=== PATIENT | male | born 1950 | race Caucasian/White ===

== ENCOUNTER 2022-03-04 17:48 | Inpatient (IN) | payer MEDICARE, OTHER ==
[~2022-03-04] VITALS: Ht 175.3 cm; Wt 83.9 kg
[~2022-03-04 17:48] MED LIST: ACET-868 PO; ATEN50TA PO; BENZ0.5T43 PO; BETH25TA PO; HYDR-4384 PO; LACO50TA2 PO; LEVE250T2 PO; PANT40TA2 PO; RISP1TAB97 PO; TAMS0.4C34 PO
[2022-03-04] MEDS ORDERED: MAGN400O6 PO (19:02)
[2022-03-04] MEDS ORDERED: IBUP-1953 PO (19:02)
[2022-03-04] MEDS ORDERED: PSEU30TA34 PO (19:02)
[2022-03-04] MEDS ORDERED: OMEP20CA15 PO (19:02)
[2022-03-04] MEDS ORDERED: LORA-259 PO (19:02)
[2022-03-04] MEDS ORDERED: FLUT16SP (19:02)
[2022-03-04] MEDS ORDERED: ACET-2605 PO (19:02)
[2022-03-04] MEDS ORDERED: GABA-532 PO (19:02)
[2022-03-04] MEDS ORDERED: DICY10CA13 PO (19:02)
[2022-03-04] MEDS ORDERED: SODI1TAB66 PO (19:02)
[2022-03-04] MEDS ORDERED: ATOR10TA PO (19:02)
[2022-03-04] MEDS ORDERED: RISP0.2515 PO (19:02)
[2022-03-04 19:12] LABS: CALCIUM, SERUM 9.3 mg/dL (8.5-10.1); CARBON DIOXIDE 21 mmol/L (21-32); CHLORIDE 95 mmol/L (98-107); CREATININE 0.7 mg/dL (0.6-1.3); GLUCOSE 132 mg/dL (74-106); POTASSIUM 3.9 mmol/L (3.5-5.1); SODIUM SERUM 128 mmol/L (136-145); UREA NITROGEN, BLOOD 14 mg/dL (7-18)
[2022-03-04 19:17] LABS: ALANINE AMINOTRANSFERASE 31 U/L (12-78); ALBUMIN 3.9 g/dL (3.4-5.0); ALKALINE PHOSPHATASE 89 U/L (46-116); ASPARTATE AMINOTRANSFERASE 19 U/L (15-37); BILIRUBIN,DIRECT 0.3 mg/dL (0.0-0.2); BILIRUBIN,TOTAL 1.1 mg/dL (0.2-1.0); TOTAL PROTEIN, SERUM 7.7 g/dL (6.4-8.2)
[2022-03-04 19:55] LABS: BASOPHILS % (AUTO) 0.1 % (0.0-2.0); EOSINOPHILS % (AUTO) 0.1 % (0.0-6.0); HEMATOCRIT 46 % (39-51); HEMOGLOBIN 15.5 g/dL (13.5-17.5); LYMPHOCYTES # (AUTO) 0.8 K/uL (0.8-4.8); LYMPHOCYTES % (AUTO) 8.2 % (20.0-44.0); MEAN CORPUSCULAR HGB CONC 34 g/dl (31.0-36.0); MEAN CORPUSCULAR VOLUME 94 fL (80-96); MONOCYTES # (AUTO) 1.6 K/uL (0.1-1.30); MONOCYTES % (AUTO) 15.4 % (2.0-12.0); NEUTROPHILS # (AUTO) 7.9 K/uL (1.8-8.9); NEUTROPHILS % (AUTO) 76.2 % (43.0-81.0); PLATELET COUNT (AUTO) 221 K/uL (150-450); RED BLOOD CELL COUNT(AUTO) 4.84 MIL/uL (4.5-6.0); WHITE BLOOD COUNT (AUTO) 10.3 K/uL (4.3-11.0)
[2022-03-04] MEDS ORDERED: IV NS 0.9% 1,000 ML BAG IV ONE (22:30)
[2022-03-04] MEDS ORDERED: LEVETIRACETAM (500MG) 500 MG in IV NS 0.9% 100 ML IV SCH (22:30)
[2022-03-04] MEDS ORDERED: LEVETIRACETAM (500MG) 500 MG/5 ML VIAL IV ONE (22:36)
[2022-03-04] MEDS ORDERED: MAG HYDROX/AL HYDROX/SIMETH 30 ML UDC PO PRN (23:30)
[2022-03-04] MEDS ORDERED: Z GUARD REMEDY 4 OZ OINT TP PRN (23:30)
[2022-03-04] MEDS ORDERED: ONDANSETRON HCL/PF 4 MG/2 ML VIAL IVP PRN (23:30)
[2022-03-04] MEDS ORDERED: MAGNESIUM HYDROXIDE 30 ML UDC PO PRN (23:30)
[2022-03-05] VITALS: BP 146/86
[2022-03-05] MEDS: IV NS 0.9% 1,000 ML IV PRN ×2 (00:59→15:55)
[2022-03-05] MEDS: ENOXAPARIN SODIUM 40 MG/0.4 ML DISP.SYRIN SQ SCH ×2 (01:01→21:20)
[2022-03-05] MEDS ORDERED: ACETAMINOPHEN ES 500 MG TABLET PO PRN (01:30)
[2022-03-05] MEDS ORDERED: MAGNESIUM HYDROXIDE 30 ML UDC PO PRN (01:30)
[2022-03-05] MEDS ORDERED: IBUPROFEN 400 MG TABLET PO PRN (01:30)
[2022-03-05] MEDS ORDERED: DICYCLOMINE HCL 10 MG CAPSULE PO PRN (01:30)
[2022-03-05 04:00] VITALS: BP 132/93
[2022-03-05] MEDS ORDERED: OMEPRAZOLE 20 MG CAPSULE.DR PO SCH (07:30)
[2022-03-05 07:32] LABS: BASOPHILS % (AUTO) 0.3 % (0.0-2.0); HEMATOCRIT 39 % (39-51); HEMOGLOBIN 13.3 g/dL (13.5-17.5); LYMPHOCYTES # (AUTO) 1.6 K/uL (0.8-4.8); MEAN CORPUSCULAR HGB CONC 34 g/dl (31.0-36.0); MEAN CORPUSCULAR VOLUME 94 fL (80-96); MONOCYTES # (AUTO) 1.8 K/uL (0.1-1.30); MONOCYTES % (AUTO) 21.1 % (2.0-12.0); NEUTROPHILS # (AUTO) 5.1 K/uL (1.8-8.9); NEUTROPHILS % (AUTO) 58.6 % (43.0-81.0); PLATELET COUNT (AUTO) 196 K/uL (150-450); RED BLOOD CELL COUNT(AUTO) 4.18 MIL/uL (4.5-6.0); WHITE BLOOD COUNT (AUTO) 8.7 K/uL (4.3-11.0)
[2022-03-05 07:52] LABS: CALCIUM, SERUM 8.4 mg/dL (8.5-10.1); CARBON DIOXIDE 26 mmol/L (21-32); CHLORIDE 101 mmol/L (98-107); CREATININE 0.5 mg/dL (0.6-1.3); GLUCOSE 99 mg/dL (74-106); MAGNESIUM 1.9 mg/dL (1.8-2.4); PHOSPHORUS 2.8 mg/dL (2.5-4.9); POTASSIUM 3.8 mmol/L (3.5-5.1); SODIUM SERUM 133 mmol/L (136-145); UREA NITROGEN, BLOOD 9 mg/dL (7-18)
[2022-03-05 08:00] VITALS: BP 143/85
[2022-03-05 08:03] LABS: CHOLESTEROL 112 mg/dL (<200); HDL CHOLESTEROL 76 mg/dL (40-60); LDL 27 mg/dL (0-99); THYROID STIMULATING HORMONE 0.415 uIU/mL (0.358-3.74); TRIGLYCERIDES 34 mg/dL (30-150)
[2022-03-05] MEDS: SODIUM CHLORIDE 1000 MG TABLET PO SCH ×3 (09:55→18:23)
[2022-03-05] MEDS: TAMSULOSIN 0.4 MG CAP.SR.24H PO SCH (09:55)
[2022-03-05] MEDS: GABAPENTIN 100 MG CAPSULE PO SCH ×2 (09:55→18:22)
[2022-03-05] MEDS: risperiDONE 0.25 MG TABLET PO SCH ×2 (09:56→18:23)
[2022-03-05] MEDS: BETHANECHOL CHLORIDE (25 MG) 25 MG TABLET PO SCH ×3 (09:57→18:22)
[2022-03-05] MEDS: FLUTICASONE PROPIONATE 16 GM BOTTLE NS SCH (09:58)
[2022-03-05] MEDS: LEVETIRACETAM (500MG) 500 MG in IV NS 0.9% 100 ML IV SCH ×2 (10:01→21:19)
[2022-03-05] MEDS: PANTOPRAZOLE 40 MG TABLET.DR PO SCH (10:02)
[2022-03-05] MEDS: ACETAMINOPHEN 325 MG TABLET PO PRN (10:45)
[2022-03-05 12:00] VITALS: BP 143/76
[2022-03-05 12:34] LABS: BAND % (MANUAL) 2 % (0.0-5.0); LYMPHOCYTES % (MANUAL) 18 % (16-48); MONOCYTES % (MANUAL) 20 % (0-11.0); MYELOCYTES % 1 % (0-0); NEUTROPHILS % (MANUAL) 59 (42-76)
[2022-03-05 16:00] VITALS: BP 147/93
[2022-03-05] MEDS: PSEUDOEPHEDRINE HCL 30 MG TABLET PO SCH (18:22)
[2022-03-05 20:00] VITALS: BP 140/89
[2022-03-05] MEDS: BENZTROPINE MESYLATE (1 MG) 1 MG TABLET PO SCH (21:21)
[2022-03-05] MEDS: ATORVASTATIN 10 MG TABLET PO SCH (21:21)
[2022-03-06 04:00] VITALS: BP 164/97
[2022-03-06] MEDS: IV NS 0.9% 1,000 ML IV PRN ×2 (06:37→23:05)
[2022-03-06 08:00] VITALS: BP 156/95
[2022-03-06] MEDS: LEVETIRACETAM (500MG) 500 MG in IV NS 0.9% 100 ML IV SCH (08:31)
[2022-03-06] MEDS: GABAPENTIN 100 MG CAPSULE PO SCH ×2 (08:32→17:24)
[2022-03-06] MEDS: BETHANECHOL CHLORIDE (25 MG) 25 MG TABLET PO SCH ×3 (08:32→17:24)
[2022-03-06] MEDS: PANTOPRAZOLE 40 MG TABLET.DR PO SCH (08:32)
[2022-03-06] MEDS: TAMSULOSIN 0.4 MG CAP.SR.24H PO SCH (08:32)
[2022-03-06] MEDS: risperiDONE 0.25 MG TABLET PO SCH ×2 (08:32→17:24)
[2022-03-06] MEDS: FLUTICASONE PROPIONATE 16 GM BOTTLE NS SCH (08:33)
[2022-03-06] MEDS: SODIUM CHLORIDE 1000 MG TABLET PO SCH ×3 (08:35→17:26)
[2022-03-06] MEDS: CLOTRIMAZOLE 1% 15 GM TUBE TP SCH ×2 (08:36→17:27)
[2022-03-06 10:47] LABS: BASOPHILS % (AUTO) 0.5 % (0.0-2.0); EOSINOPHILS % (AUTO) 1.7 % (0.0-6.0); HEMATOCRIT 42 % (39-51); LYMPHOCYTES # (AUTO) 1.7 K/uL (0.8-4.8); MEAN CORPUSCULAR HGB CONC 34 g/dl (31.0-36.0); MEAN CORPUSCULAR VOLUME 94 fL (80-96); MONOCYTES # (AUTO) 1.7 K/uL (0.1-1.30); MONOCYTES % (AUTO) 20.6 % (2.0-12.0); NEUTROPHILS # (AUTO) 4.6 K/uL (1.8-8.9); NEUTROPHILS % (AUTO) 56.2 % (43.0-81.0); PLATELET COUNT (AUTO) 198 K/uL (150-450); RED BLOOD CELL COUNT(AUTO) 4.42 MIL/uL (4.5-6.0); WHITE BLOOD COUNT (AUTO) 8.1 K/uL (4.3-11.0)
[2022-03-06 11:34] LABS: CALCIUM, SERUM 8.7 mg/dL (8.5-10.1); CARBON DIOXIDE 24 mmol/L (21-32); CHLORIDE 100 mmol/L (98-107); CREATININE 0.6 mg/dL (0.6-1.3); GLUCOSE 110 mg/dL (74-106); POTASSIUM 3.4 mmol/L (3.5-5.1); SODIUM SERUM 131 mmol/L (136-145); UREA NITROGEN, BLOOD 8 mg/dL (7-18)
[2022-03-06 15:09] LABS: BASOPHILS % (MANUAL) 1 % (0.0-2.0); EOSINOPHILS % (MANUAL) 2 % (0-4); LYMPHOCYTES % (MANUAL) 23 % (16-48); MONOCYTES % (MANUAL) 20 % (0-11.0); NEUTROPHILS % (MANUAL) 54 (42-76)
[2022-03-06] MEDS: PSEUDOEPHEDRINE HCL 30 MG TABLET PO SCH (17:26)
[2022-03-06 17:41] VITALS: BP 159/99
[2022-03-06] MEDS ORDERED: POTASSIUM CHLORIDE 20 MEQ TAB.PRT.SR PO SCH (19:00)
[2022-03-06 20:00] VITALS: BP 147/97
[2022-03-06] MEDS: BENZTROPINE MESYLATE (1 MG) 1 MG TABLET PO SCH (21:06)
[2022-03-06] MEDS: LEVETIRACETAM (250 MG) 250 MG TABLET PO SCH (21:06)
[2022-03-06] MEDS: ATORVASTATIN 10 MG TABLET PO SCH (21:06)
[2022-03-06] MEDS: ENOXAPARIN SODIUM 40 MG/0.4 ML DISP.SYRIN SQ SCH (21:08)
[2022-03-07 04:00] VITALS: BP 153/98
[2022-03-07 08:00] VITALS: BP 183/97
[2022-03-07] MEDS: TAMSULOSIN 0.4 MG CAP.SR.24H PO SCH (08:31)
[2022-03-07] MEDS: SODIUM CHLORIDE 1000 MG TABLET PO SCH ×3 (08:31→18:13)
[2022-03-07] MEDS: PANTOPRAZOLE 40 MG TABLET.DR PO SCH (08:31)
[2022-03-07] MEDS: risperiDONE 0.25 MG TABLET PO SCH ×2 (08:31→17:00)
[2022-03-07] MEDS: LEVETIRACETAM (250 MG) 250 MG TABLET PO SCH ×2 (08:31→21:20)
[2022-03-07] MEDS: GABAPENTIN 100 MG CAPSULE PO SCH ×2 (08:31→18:12)
[2022-03-07] MEDS: CLOTRIMAZOLE 1% 15 GM TUBE TP SCH ×2 (09:01→17:00)
[2022-03-07] MEDS: BETHANECHOL CHLORIDE (25 MG) 25 MG TABLET PO SCH ×3 (09:53→18:13)
[2022-03-07] MEDS: FLUTICASONE PROPIONATE 16 GM BOTTLE NS SCH (09:54)
[2022-03-07] MEDS: Potassium Chloride 20 MEQ in IV NS 0.9% 1,000 ML IV SCH (11:24)
[2022-03-07] MEDS ORDERED: CLOT15CR35 TP (13:28)
[2022-03-07 16:11] VITALS: BP 147/104
[2022-03-07] MEDS: PSEUDOEPHEDRINE HCL 30 MG TABLET PO SCH (18:12)
[2022-03-07] MEDS ORDERED: hydrALAZINE HCL IV 20 MG VIAL IV ONE ×2 (19:20→20:30)
[2022-03-07] MEDS: BENZTROPINE MESYLATE (1 MG) 1 MG TABLET PO SCH (21:20)
[2022-03-07] MEDS: ATORVASTATIN 10 MG TABLET PO SCH (21:20)
[2022-03-07] MEDS: ENOXAPARIN SODIUM 40 MG/0.4 ML DISP.SYRIN SQ SCH (21:24)
[2022-03-07] MEDS: LORAZEPAM 1 MG TABLET PO PRN (22:12)
[2022-03-08] VITALS: BP 116/75
[2022-03-08] MEDS: Potassium Chloride 20 MEQ in IV NS 0.9% 1,000 ML IV SCH (04:27)
[2022-03-08] MEDS: ACETAMINOPHEN 325 MG TABLET PO PRN (07:28)
[2022-03-08] MEDS: LORAZEPAM 1 MG TABLET PO PRN (07:28)
[2022-03-08] MEDS: PANTOPRAZOLE 40 MG TABLET.DR PO SCH (07:28)
[2022-03-08] MEDS: risperiDONE 0.25 MG TABLET PO SCH (08:19)
[2022-03-08] MEDS: GABAPENTIN 100 MG CAPSULE PO SCH (08:19)
[2022-03-08] MEDS: TAMSULOSIN 0.4 MG CAP.SR.24H PO SCH (08:19)
[2022-03-08] MEDS: CLOTRIMAZOLE 1% 15 GM TUBE TP SCH (08:19)
[2022-03-08] MEDS: SODIUM CHLORIDE 1000 MG TABLET PO SCH (08:19)
[2022-03-08] MEDS: LEVETIRACETAM (250 MG) 250 MG TABLET PO SCH (08:19)
[2022-03-08] MEDS: BETHANECHOL CHLORIDE (25 MG) 25 MG TABLET PO SCH (08:19)
[2022-03-08] MEDS: FLUTICASONE PROPIONATE 16 GM BOTTLE NS SCH (08:20)
[2022-03-08 08:24] VITALS: BP 147/97
[2022-03-08 10:16] VITALS: BP 116/88
[2022-03-08] MEDS ORDERED: LORAZEPAM INJ 2 MG/ML VIAL IV ONE (11:40)
[2022-03-08 11:55] VITALS: BP 120/90
== END 2022-03-08 11:56 | DRG 100 ==
LOC: ER 18:30 → TELE1 23:10 → MEDSG1 03-05 14:54
PROVIDERS: ADMIT Registered Nurse; ATTEND Nurse Practitioner Acute Care
DX: G40.909 Epilepsy, unspecified, not intractable, without status epilepticus (principal); G93.41 Metabolic encephalopathy; E87.1 Hypo-osmolality and hyponatremia; F03.90 Unspecified dementia, unspecified severity, without behavioral disturbance, psychotic disturbance, mood disturbance, and anxiety; Z85.840 Personal history of malignant neoplasm of eye; E78.5 Hyperlipidemia, unspecified; Z20.822 Contact with and (suspected) exposure to COVID-19; F20.9 Schizophrenia, unspecified; I10 Essential (primary) hypertension; Z88.0 Allergy status to penicillin; Z79.899 Other long term (current) drug therapy; K21.9 Gastro-esophageal reflux disease without esophagitis; N40.0 Benign prostatic hyperplasia without lower urinary tract symptoms; E86.1 Hypovolemia; E87.6 Hypokalemia
CPT/HCPCS: 36415; 70450-TC; 71045-TC; 80048-TC; 80061-TC; 80076-TC; 80177; 83735-TC; 84100-TC; 84443-TC; 84484-TC; 85025-TC; 85730-TC; 87040-TC; 87081-TC; 97116-TC; 97530-TC; C9803; G0378; J0360; J1650; J1953; J2060; J3480; J7030; J7040

== ENCOUNTER → 2023-10-16 | Emergency (ER) | payer MEDICARE, OTHER ==
[~2023-10-16] VITALS: Ht 172.7 cm; Wt 72.6 kg
[~2023-10-16] MED LIST changes: -ACET-868 PO; +AMIO200T5 PO; -ATEN50TA PO; +ATOR10TA PO; +CLOT15CR27 TP; +DICY10CA13 PO; +GABA-532 PO; -HYDR-4384 PO; +HYDR28.485 TP; +IBUP-1953 PO; +LACO100T2 PO; -LACO50TA2 PO; +METH5TAB6 PO; +METO25TA20 PO; +OMEP20CA15 PO; -PANT40TA2 PO; +PSEU30TA34 PO; +RISP0.2515 PO; -RISP1TAB97 PO; +SULF15DR6 RIGHTEYE
[2023-10-16 13:11] LABS: BASOPHILS % (AUTO) 0.3 % (0.0-2.0); EOSINOPHILS % (AUTO) 0.4 % (0.0-6.0); HEMATOCRIT 45 % (39-51); HEMOGLOBIN 14.9 g/dL (13.5-17.5); LYMPHOCYTES # (AUTO) 1.3 K/uL (0.8-4.8); LYMPHOCYTES % (AUTO) 16.5 % (20.0-44.0); MEAN CORPUSCULAR HEMOGLOBIN 32 PG (26.0-33.0); MEAN CORPUSCULAR HGB CONC 33 g/dl (31.0-36.0); MEAN CORPUSCULAR VOLUME 97 fL (80-96); MONOCYTES # (AUTO) 0.7 K/uL (0.1-1.30); MONOCYTES % (AUTO) 9.8 % (2.0-12.0); NEUTROPHILS # (AUTO) 5.6 K/uL (1.8-8.9); PLATELET COUNT (AUTO) 159 K/uL (150-450); RED BLOOD CELL COUNT(AUTO) 4.63 MIL/uL (4.5-6.0); RED CELL DISTRIBUTION WIDTH 13.9 % (11.5-15.0); WHITE BLOOD COUNT (AUTO) 7.7 K/uL (4.3-11.0)
[2023-10-16 13:26] LABS: CALCIUM, SERUM 9.4 mg/dL (8.5-10.1); CARBON DIOXIDE 23 mmol/L (21-32); CHLORIDE 97 mmol/L (98-107); CREATININE 0.7 mg/dL (0.6-1.3); GLUCOSE 102 mg/dL (74-106); POTASSIUM 3.9 mmol/L (3.5-5.1); SODIUM SERUM 131 mmol/L (136-145); UREA NITROGEN, BLOOD 15 mg/dL (7-18)
[2023-10-16 13:31] LABS: ALANINE AMINOTRANSFERASE 31 U/L (12-78); ALBUMIN 3.7 g/dL (3.4-5.0); ALKALINE PHOSPHATASE 121 U/L (46-116); ASPARTATE AMINOTRANSFERASE 17 U/L (15-37); BILIRUBIN,DIRECT 0.1 mg/dL (0.0-0.2); BILIRUBIN,TOTAL 0.4 mg/dL (0.2-1.0); TOTAL PROTEIN, SERUM 7.4 g/dL (6.4-8.2)
[2023-10-16 14:39] VITALS: BP 133/88; TEMP 98.4; O2SAT 97
== END | disposition home or self-care (01) ==
LOC: ER 11:46
DX: R53.1 Weakness (principal); R41.0 Disorientation, unspecified; I10 Essential (primary) hypertension; F20.9 Schizophrenia, unspecified; Z88.0 Allergy status to penicillin; Z79.899 Other long term (current) drug therapy
CPT/HCPCS: 36415; 70450-TC; 71045-TC; 80048-TC; 80076-TC; 84484-TC; 85025-TC

== ENCOUNTER 2024-06-22 12:08 | Inpatient (IN) | payer MEDICARE, OTHER ==
[~2024-06-22] VITALS: Ht 170.2 cm; Wt 76.2 kg
[~2024-06-22 12:08] MED LIST changes: -AMIO200T5 PO; -CLOT15CR27 TP; -HYDR28.485 TP; -SULF15DR6 RIGHTEYE
[2024-06-22] MEDS: IV NS 0.9% 1,000 ML BAG IV ONE (12:30)
[2024-06-22 12:58] LABS: BASOPHILS % (AUTO) 0.6 % (0.0-2.0); EOSINOPHILS # (AUTO) 0.4 K/uL (0.0-0.7); EOSINOPHILS % (AUTO) 5.9 % (0.0-6.0); HEMATOCRIT 43 % (39-51); HEMOGLOBIN 14.7 g/dL (13.5-17.5); LYMPHOCYTES # (AUTO) 2.4 K/uL (0.8-4.8); LYMPHOCYTES % (AUTO) 35.4 % (20.0-44.0); MEAN CORPUSCULAR HEMOGLOBIN 33 PG (26.0-33.0); MEAN CORPUSCULAR HGB CONC 34 g/dl (31.0-36.0); MEAN CORPUSCULAR VOLUME 97 fL (80-96); MONOCYTES # (AUTO) 0.8 K/uL (0.1-1.30); MONOCYTES % (AUTO) 12.3 % (2.0-12.0); NEUTROPHILS # (AUTO) 3.1 K/uL (1.8-8.9); NEUTROPHILS % (AUTO) 45.8 % (43.0-81.0); PLATELET COUNT (AUTO) 175 K/uL (150-450); RED CELL DISTRIBUTION WIDTH 13.2 % (11.5-15.0); WHITE BLOOD COUNT (AUTO) 6.8 K/uL (4.3-11.0)
[2024-06-22] MEDS ORDERED: ACET-2030 PO (12:58)
[2024-06-22] MEDS ORDERED: LEVE500T20 PO (12:58)
[2024-06-22] MEDS ORDERED: ACET-868 PO (12:58)
[2024-06-22] MEDS ORDERED: POLY10DR3 EACHEYE (12:58)
[2024-06-22 13:08] LABS: INR 1.04 (0.91-1.10); PARTIAL THROMBOPLASTIN TIME 25.7 SEC (24.3-34.3)
[2024-06-22 13:14] LABS: CALCIUM, SERUM 9.6 mg/dL (8.5-10.1); CARBON DIOXIDE 24 mmol/L (21-32); CHLORIDE 99 mmol/L (98-107); CREATININE 0.5 mg/dL (0.6-1.3); GLUCOSE 94 mg/dL (74-106); POTASSIUM 4.1 mmol/L (3.5-5.1); SODIUM SERUM 133 mmol/L (136-145); UREA NITROGEN, BLOOD 15 mg/dL (7-18)
[2024-06-22 13:15] LABS: LACTIC ACID 1.2 mmol/L (0.4-2.0)
[2024-06-22 13:19] LABS: ALANINE AMINOTRANSFERASE 29 U/L (12-78); ALBUMIN 3.6 g/dL (3.4-5.0); ALKALINE PHOSPHATASE 82 U/L (46-116); ASPARTATE AMINOTRANSFERASE 14 U/L (15-37); BILIRUBIN,DIRECT 0.2 mg/dL (0.0-0.2); BILIRUBIN,TOTAL 0.5 mg/dL (0.2-1.0)
[2024-06-22] MEDS ORDERED: ONDANSETRON HCL/PF 4 MG/2 ML VIAL IVP PRN (14:30)
[2024-06-22] MEDS ORDERED: MAG HYDROX/AL HYDROX/SIMETH 30 ML UDC PO PRN (14:30)
[2024-06-22] MEDS ORDERED: Z GUARD REMEDY 4 OZ OINT TP PRN (14:30)
[2024-06-22] MEDS ORDERED: MAGNESIUM HYDROXIDE 30 ML UDC PO PRN (14:30)
[2024-06-22] MEDS ORDERED: DICYCLOMINE HCL 10 MG CAPSULE PO PRN (14:30)
[2024-06-22 15:09] LABS: APPEARANCE,URINE CLEAR (CLEAR); BILIRUBIN,URINE NEGATIVE (NEGATIVE); BLOOD, URINE NEGATIVE Ery/uL (NEGATIVE); COLOR,URINE YELLOW (YELLOW); KETONES,URINE NEGATIVE (NEGATIVE); LEUKOCYTE ESTERASE ,URINE NEGATIVE (NEGATIVE); NITRITE, URINE NEGATIVE (NEGATIVE); PROTEIN,URINE NEGATIVE (NEGATIVE); UGLUCOSE NEGATIVE (NEGATIVE); UROBILINOGEN,URINE 0.2 EU/dL (0.2)
[2024-06-22 16:00] VITALS: BP 159/88; TEMP 97.7; O2SAT 97
[2024-06-22] MEDS: BETHANECHOL CHLORIDE (25 MG) 25 MG TABLET PO SCH (16:38)
[2024-06-22] MEDS: GABAPENTIN 100 MG CAPSULE PO SCH (16:38)
[2024-06-22] MEDS: LACOSAMIDE 50 MG TABLET PO SCH (16:39)
[2024-06-22] MEDS: ACETAMINOPHEN 325 MG TABLET PO PRN (16:41)
[2024-06-22] MEDS ORDERED: TMP EACHEYE SCH (17:00)
[2024-06-22] MEDS ORDERED: POLYMYXIN B SULFATE EACHEYE SCH (17:00)
[2024-06-22] MEDS: TAMSULOSIN 0.4 MG CAP.SR.24H PO SCH (17:17)
[2024-06-22] MEDS: IV NS 0.9% 1,000 ML IV PRN (17:17)
[2024-06-22 20:00] VITALS: BP 108/79; TEMP 97.7; O2SAT 96
[2024-06-22 20:38] VITALS: BP 108/79; TEMP 97.7; O2SAT 96
[2024-06-22] MEDS: BENZTROPINE MESYLATE (1 MG) 1 MG TABLET PO SCH (21:03)
[2024-06-22] MEDS: ATORVASTATIN 10 MG TABLET PO SCH (21:03)
[2024-06-22] MEDS: LEVETIRACETAM (250 MG) 250 MG TABLET PO SCH (21:03)
[2024-06-23] VITALS (9 sets, daily range): BP systolic 119–148; BP diastolic 73–90; TEMP 97.3–98.2; O2SAT 95–97
[2024-06-23 06:21] LABS: BASOPHILS % (AUTO) 0.3 % (0.0-2.0); EOSINOPHILS # (AUTO) 0.4 K/uL (0.0-0.7); EOSINOPHILS % (AUTO) 4.7 % (0.0-6.0); HEMATOCRIT 45 % (39-51); LYMPHOCYTES % (AUTO) 36.5 % (20.0-44.0); MEAN CORPUSCULAR HEMOGLOBIN 33 PG (26.0-33.0); MEAN CORPUSCULAR HGB CONC 34 g/dl (31.0-36.0); MEAN CORPUSCULAR VOLUME 96 fL (80-96); MONOCYTES % (AUTO) 11.6 % (2.0-12.0); NEUTROPHILS # (AUTO) 3.9 K/uL (1.8-8.9); NEUTROPHILS % (AUTO) 46.9 % (43.0-81.0); PLATELET COUNT (AUTO) 197 K/uL (150-450); RED BLOOD CELL COUNT(AUTO) 4.63 MIL/uL (4.5-6.0); WHITE BLOOD COUNT (AUTO) 8.3 K/uL (4.3-11.0)
[2024-06-23 06:38] LABS: CHOLESTEROL 172 mg/dL (<200); CREATINE KINASE, TOTAL 66 U/L (39-308); HDL CHOLESTEROL 92 mg/dL (40-60); LDL 68 mg/dL (0-99); TRIGLYCERIDES 33 mg/dL (30-150)
[2024-06-23 06:41] LABS: ALANINE AMINOTRANSFERASE 37 U/L (12-78); ALKALINE PHOSPHATASE 85 U/L (46-116); ASPARTATE AMINOTRANSFERASE 14 U/L (15-37); BILIRUBIN,TOTAL 0.9 mg/dL (0.2-1.0); CALCIUM, SERUM 9.3 mg/dL (8.5-10.1); CARBON DIOXIDE 26 mmol/L (21-32); CHLORIDE 102 mmol/L (98-107); CREATININE 0.5 mg/dL (0.6-1.3); GLUCOSE 78 mg/dL (74-106); PHOSPHORUS 2.9 mg/dL (2.5-4.9); SODIUM SERUM 134 mmol/L (136-145); TOTAL PROTEIN, SERUM 7.6 g/dL (6.4-8.2); UREA NITROGEN, BLOOD 11 mg/dL (7-18)
[2024-06-23] MEDS: PANTOPRAZOLE 40 MG TABLET.DR PO SCH (07:35)
[2024-06-23] MEDS: METHIMAZOLE (5MG) 5 MG TABLET PO SCH (08:20)
[2024-06-23] MEDS: LEVETIRACETAM (250 MG) 250 MG TABLET PO SCH (08:52)
[2024-06-23] MEDS: HYDROCORTISONE 0.5% CREAM 28.35 GM TUBE TP SCH (20:04)
[2024-06-24 01:12] VITALS: BP 138/89; TEMP 98.2; O2SAT 95
[2024-06-24 04:45] VITALS: BP 148/85; TEMP 97.7; O2SAT 95
[2024-06-24 08:00] VITALS: BP 147/91; TEMP 97.7; O2SAT 96
[2024-06-24 12:00] VITALS: BP 138/88; TEMP 97.7; O2SAT 98
[2024-06-24 16:00] VITALS: BP 154/103; TEMP 98.1; O2SAT 95
[2024-06-24 20:48] VITALS: BP_SYST 153; BP_SYST 162; BP_DIAS 76; BP_DIAS 91; TEMP 98.1; TEMP 99.3; O2SAT 92; O2SAT 95
[2024-06-25 07:30] VITALS: BP 153/85; TEMP 97.7; O2SAT 95
[2024-06-25] MEDS ORDERED: HYDROCORTISONE 0.5% TP (10:15)
[2024-07-03] MEDS ORDERED: CEPH-570 PO (10:56)
== END 2024-06-25 18:34 | disposition home health service (06) | DRG 308 ==
LOC: ER 12:10 → TELE 15:05 → MED 06-24 12:02
PROVIDERS: ADMIT Nurse Practitioner Acute Care; ATTEND Nurse Practitioner Acute Care
DX: R00.1 Bradycardia, unspecified (principal); G93.41 Metabolic encephalopathy; E87.1 Hypo-osmolality and hyponatremia; I10 Essential (primary) hypertension; G40.909 Epilepsy, unspecified, not intractable, without status epilepticus; G62.9 Polyneuropathy, unspecified; E78.5 Hyperlipidemia, unspecified; F20.9 Schizophrenia, unspecified; Z88.0 Allergy status to penicillin; N40.0 Benign prostatic hyperplasia without lower urinary tract symptoms; K21.9 Gastro-esophageal reflux disease without esophagitis; Z79.899 Other long term (current) drug therapy; Z97.0 Presence of artificial eye; R29.810 Facial weakness; G20.A1 Parkinson's disease without dyskinesia, without mention of fluctuations; F02.80 Dementia in other diseases classified elsewhere, unspecified severity, without behavioral disturbance, psychotic disturbance, mood disturbance, and anxiety; E05.90 Thyrotoxicosis, unspecified without thyrotoxic crisis or storm
CPT/HCPCS: 36415; 70450-TC; 71045-TC; 80048-TC; 80053-TC; 80061-TC; 80076-TC; 80177; 82550-TC; 83605-TC; 83735-TC; 84100-TC; 84484-TC; 85025-TC; 85730-TC; 87040-TC; 87086-TC; 97110-TC; 97116-TC; 97530-TC; A4223; G0378; J7030

== ENCOUNTER 2024-06-29 21:00 | Inpatient (IN) | payer MEDICARE, OTHER ==
[~2024-06-29] VITALS: Ht 167.6 cm; Wt 74.8 kg
[~2024-06-29 21:00] MED LIST changes: +ACET-2030 PO; +ACET-868 PO; +HYDROCORTISONE 0.5% TP; +LEVE500T20 PO; +POLY10DR3 EACHEYE; -PSEU30TA34 PO
[2024-06-29 22:44] LABS: HEMATOCRIT 43 % (39-51); HEMOGLOBIN 14.6 g/dL (13.5-17.5); MEAN CORPUSCULAR HEMOGLOBIN 32 PG (26.0-33.0); MEAN CORPUSCULAR VOLUME 96 fL (80-96); RED BLOOD CELL COUNT(AUTO) 4.52 MIL/uL (4.5-6.0); WHITE BLOOD COUNT (AUTO) 12.7 K/uL (4.3-11.0)
[2024-06-29 22:45] LABS: BASOPHILS % (AUTO) 0.4 % (0.0-2.0); EOSINOPHILS # (AUTO) 0.1 K/uL (0.0-0.7); EOSINOPHILS % (AUTO) 0.9 % (0.0-6.0); LYMPHOCYTES # (AUTO) 1.8 K/uL (0.8-4.8); LYMPHOCYTES % (AUTO) 14.3 % (20.0-44.0); MEAN CORPUSCULAR HGB CONC 34 g/dl (31.0-36.0); MONOCYTES # (AUTO) 2.2 K/uL (0.1-1.30); MONOCYTES % (AUTO) 17.5 % (2.0-12.0); NEUTROPHILS # (AUTO) 8.5 K/uL (1.8-8.9); NEUTROPHILS % (AUTO) 66.9 % (43.0-81.0); PLATELET COUNT (AUTO) 178 K/uL (150-450); RED CELL DISTRIBUTION WIDTH 13.2 % (11.5-15.0)
[2024-06-29 23:02] LABS: CALCIUM, SERUM 9.7 mg/dL (8.5-10.1); CARBON DIOXIDE 25 mmol/L (21-32); CHLORIDE 97 mmol/L (98-107); CREATININE 0.7 mg/dL (0.6-1.3); GLUCOSE 111 mg/dL (74-106); POTASSIUM 3.9 mmol/L (3.5-5.1); SODIUM SERUM 131 mmol/L (136-145); UREA NITROGEN, BLOOD 12 mg/dL (7-18)
[2024-06-29 23:08] LABS: LACTIC ACID 1.6 mmol/L (0.4-2.0)
[2024-06-29 23:17] LABS: ALANINE AMINOTRANSFERASE 28 U/L (12-78); ALBUMIN 3.6 g/dL (3.4-5.0); ALKALINE PHOSPHATASE 100 U/L (46-116); ASPARTATE AMINOTRANSFERASE 15 U/L (15-37); BILIRUBIN,TOTAL 0.9 mg/dL (0.2-1.0); TOTAL PROTEIN, SERUM 7.5 g/dL (6.4-8.2)
[2024-06-30 01:09] LABS: APPEARANCE,URINE CLEAR (CLEAR); BILIRUBIN,URINE NEGATIVE (NEGATIVE); BLOOD, URINE TRACE-INTA Ery/uL (NEGATIVE); COLOR,URINE YELLOW (YELLOW); KETONES,URINE TRACE mg/dL (NEGATIVE); LEUKOCYTE ESTERASE ,URINE 1+ (NEGATIVE); NITRITE, URINE NEGATIVE (NEGATIVE); PH,URINE 6.5 (5.0-8.0); PROTEIN,URINE NEGATIVE (NEGATIVE); UGLUCOSE NEGATIVE (NEGATIVE); UROBILINOGEN,URINE 0.2 EU/dL (0.2)
[2024-06-30 01:10] LABS: ADD URINE CULTURE YES; BACTERIA,URINE Few /HPF (None Seen); SQUAMOUS EPITHELIAL CELL,UR Rare /HPF (None Seen)
[2024-06-30] MEDS ORDERED: MAGNESIUM HYDROXIDE 30 ML UDC PO PRN (03:00)
[2024-06-30] MEDS ORDERED: DICYCLOMINE HCL 10 MG CAPSULE PO PRN (03:00)
[2024-06-30] MEDS ORDERED: IBUPROFEN 400 MG TABLET PO PRN (03:00)
[2024-06-30] MEDS ORDERED: MORPHINE SULFATE INJ 2 MG/ML DISP.SYRIN IV PRN (03:00)
[2024-06-30] MEDS ORDERED: ONDANSETRON HCL/PF 4 MG/2 ML VIAL IVP PRN (03:00)
[2024-06-30] MEDS ORDERED: ACETAMINOPHEN 325 MG TABLET PO PRN (03:00)
[2024-06-30] MEDS ORDERED: Z GUARD REMEDY 4 OZ OINT TP PRN (03:00)
[2024-06-30] MEDS ORDERED: MAG HYDROX/AL HYDROX/SIMETH 30 ML UDC PO PRN (03:00)
[2024-06-30] MEDS: IV NS 0.9% 1,000 ML IV SCH (04:06)
[2024-06-30 04:30] VITALS: BP 159/96; TEMP 97.7; O2SAT 97
[2024-06-30] MEDS: HYDROCODONE/APAP 5/325MG TABLET PO PRN (04:54)
[2024-06-30 07:13] LABS: MAGNESIUM 2.1 mg/dL (1.8-2.4); PHOSPHORUS 2.8 mg/dL (2.5-4.9)
[2024-06-30 07:30] VITALS: BP 152/106; TEMP 98.4; O2SAT 95
[2024-06-30] MEDS ORDERED: OMEPRAZOLE 20 MG CAPSULE.DR PO SCH (07:30)
[2024-06-30] MEDS: risperiDONE 0.25 MG TABLET PO SCH (08:16)
[2024-06-30] MEDS: LACOSAMIDE 50 MG TABLET PO SCH (08:16)
[2024-06-30] MEDS: DOCUSATE SODIUM 100 MG CAPSULE PO SCH (08:17)
[2024-06-30] MEDS: GABAPENTIN 100 MG CAPSULE PO SCH (08:17)
[2024-06-30] MEDS: METOPROLOL TARTRATE 25 MG TABLET PO SCH (08:17)
[2024-06-30] MEDS: LEVETIRACETAM (250 MG) 250 MG TABLET PO SCH ×2 (08:17→21:10)
[2024-06-30] MEDS: METHIMAZOLE (5MG) 5 MG TABLET PO SCH (08:17)
[2024-06-30] MEDS: PANTOPRAZOLE 40 MG TABLET.DR PO SCH (08:17)
[2024-06-30] MEDS: BETHANECHOL CHLORIDE (25 MG) 25 MG TABLET PO SCH (08:17)
[2024-06-30] MEDS ORDERED: POLYMYXIN B SULFATE EACHEYE SCH (09:00)
[2024-06-30] MEDS ORDERED: TMP EACHEYE SCH (09:00)
[2024-06-30 16:00] VITALS: BP 132/90; TEMP 99.1; O2SAT 96
[2024-06-30] MEDS: TAMSULOSIN 0.4 MG CAP.SR.24H PO SCH (17:18)
[2024-06-30 20:00] VITALS: BP 152/95; TEMP 97.6; O2SAT 96
[2024-06-30] MEDS: CEPHALEXIN MONOHYDRATE 500 MG CAPSULE PO SCH (21:09)
[2024-06-30] MEDS: ATORVASTATIN 10 MG TABLET PO SCH (21:09)
[2024-06-30] MEDS: BENZTROPINE MESYLATE (1 MG) 1 MG TABLET PO SCH (21:10)
[2024-06-30] MEDS: HYDROCODONE/APAP 10/325MG TABLET PO PRN (23:30)
[2024-07-01 06:30] LABS: BASOPHILS # (AUTO) 0.1 K/uL (0.0-0.2); BASOPHILS % (AUTO) 0.5 % (0.0-2.0); EOSINOPHILS # (AUTO) 0.5 K/uL (0.0-0.7); EOSINOPHILS % (AUTO) 4.3 % (0.0-6.0); HEMATOCRIT 43 % (39-51); HEMOGLOBIN 14.6 g/dL (13.5-17.5); LYMPHOCYTES # (AUTO) 1.7 K/uL (0.8-4.8); LYMPHOCYTES % (AUTO) 16.1 % (20.0-44.0); MEAN CORPUSCULAR HEMOGLOBIN 33 PG (26.0-33.0); MEAN CORPUSCULAR HGB CONC 34 g/dl (31.0-36.0); MEAN CORPUSCULAR VOLUME 98 fL (80-96); MONOCYTES # (AUTO) 1.9 K/uL (0.1-1.30); MONOCYTES % (AUTO) 17.7 % (2.0-12.0); NEUTROPHILS # (AUTO) 6.6 K/uL (1.8-8.9); NEUTROPHILS % (AUTO) 61.4 % (43.0-81.0); PLATELET COUNT (AUTO) 185 K/uL (150-450); RED BLOOD CELL COUNT(AUTO) 4.45 MIL/uL (4.5-6.0); RED CELL DISTRIBUTION WIDTH 13.5 % (11.5-15.0); WHITE BLOOD COUNT (AUTO) 10.7 K/uL (4.3-11.0)
[2024-07-01 06:57] LABS: CALCIUM, SERUM 8.8 mg/dL (8.5-10.1); CARBON DIOXIDE 25 mmol/L (21-32); CHLORIDE 99 mmol/L (98-107); CREATININE 0.6 mg/dL (0.6-1.3); GLUCOSE 101 mg/dL (74-106); POTASSIUM 3.7 mmol/L (3.5-5.1); SODIUM SERUM 132 mmol/L (136-145); UREA NITROGEN, BLOOD 7 mg/dL (7-18)
[2024-07-01 07:30] VITALS: BP 160/109; TEMP 98.1; O2SAT 95
[2024-07-01] MEDS ORDERED: IV NS 0.9% 1,000 ML IV PRN (08:38)
[2024-07-01 09:03] LABS: BASOPHILS % (MANUAL) 0 % (0.0-2.0); EOSINOPHILS % (MANUAL) 5 % (0-4); LYMPHOCYTES % (MANUAL) 15 % (16-48); MONOCYTES % (MANUAL) 13 % (0-11.0); NEUTROPHILS % (MANUAL) 67 (42-76); PLATELET ESTIMATE ADEQUATE
[2024-07-01 16:00] VITALS: BP 111/79; TEMP 97.5; O2SAT 96
[2024-07-01 20:00] VITALS: BP 152/103; TEMP 98.6; O2SAT 95
[2024-07-02 06:32] LABS: BASOPHILS % (AUTO) 0.5 % (0.0-2.0); EOSINOPHILS # (AUTO) 0.6 K/uL (0.0-0.7); EOSINOPHILS % (AUTO) 6.5 % (0.0-6.0); HEMATOCRIT 41 % (39-51); LYMPHOCYTES # (AUTO) 2.2 K/uL (0.8-4.8); LYMPHOCYTES % (AUTO) 24.4 % (20.0-44.0); MEAN CORPUSCULAR HEMOGLOBIN 33 PG (26.0-33.0); MEAN CORPUSCULAR HGB CONC 34 g/dl (31.0-36.0); MEAN CORPUSCULAR VOLUME 96 fL (80-96); MONOCYTES # (AUTO) 1.3 K/uL (0.1-1.30); MONOCYTES % (AUTO) 14.7 % (2.0-12.0); NEUTROPHILS # (AUTO) 4.8 K/uL (1.8-8.9); NEUTROPHILS % (AUTO) 53.9 % (43.0-81.0); PLATELET COUNT (AUTO) 192 K/uL (150-450); RED BLOOD CELL COUNT(AUTO) 4.26 MIL/uL (4.5-6.0); RED CELL DISTRIBUTION WIDTH 13.2 % (11.5-15.0); WHITE BLOOD COUNT (AUTO) 8.8 K/uL (4.3-11.0)
[2024-07-02 06:53] LABS: CALCIUM, SERUM 8.3 mg/dL (8.5-10.1); CARBON DIOXIDE 21 mmol/L (21-32); CHLORIDE 100 mmol/L (98-107); CREATININE 0.5 mg/dL (0.6-1.3); GLUCOSE 98 mg/dL (74-106); SODIUM SERUM 134 mmol/L (136-145); UREA NITROGEN, BLOOD 7 mg/dL (7-18)
[2024-07-02 07:11] LABS: MAGNESIUM 1.8 mg/dL (1.8-2.4); PHOSPHORUS 2.9 mg/dL (2.5-4.9)
[2024-07-02 08:00] VITALS: BP 125/99; TEMP 98.2; O2SAT 95
[2024-07-02 16:00] VITALS: BP 129/87; TEMP 98.2; O2SAT 96
[2024-07-02 20:00] VITALS: BP 111/71; TEMP 99.3; O2SAT 95
[2024-07-03 06:26] LABS: BASOPHILS % (AUTO) 0.4 % (0.0-2.0); EOSINOPHILS # (AUTO) 0.6 K/uL (0.0-0.7); EOSINOPHILS % (AUTO) 6.6 % (0.0-6.0); HEMATOCRIT 41 % (39-51); HEMOGLOBIN 13.8 g/dL (13.5-17.5); LYMPHOCYTES # (AUTO) 1.5 K/uL (0.8-4.8); LYMPHOCYTES % (AUTO) 18.4 % (20.0-44.0); MEAN CORPUSCULAR HEMOGLOBIN 33 PG (26.0-33.0); MEAN CORPUSCULAR HGB CONC 34 g/dl (31.0-36.0); MEAN CORPUSCULAR VOLUME 96 fL (80-96); MONOCYTES # (AUTO) 1.5 K/uL (0.1-1.30); MONOCYTES % (AUTO) 17.9 % (2.0-12.0); NEUTROPHILS # (AUTO) 4.7 K/uL (1.8-8.9); NEUTROPHILS % (AUTO) 56.7 % (43.0-81.0); PLATELET COUNT (AUTO) 200 K/uL (150-450); RED BLOOD CELL COUNT(AUTO) 4.24 MIL/uL (4.5-6.0); WHITE BLOOD COUNT (AUTO) 8.3 K/uL (4.3-11.0)
[2024-07-03 06:46] LABS: CALCIUM, SERUM 8.8 mg/dL (8.5-10.1); CARBON DIOXIDE 27 mmol/L (21-32); CHLORIDE 97 mmol/L (98-107); CREATININE 0.5 mg/dL (0.6-1.3); GLUCOSE 100 mg/dL (74-106); POTASSIUM 3.4 mmol/L (3.5-5.1); SODIUM SERUM 132 mmol/L (136-145); UREA NITROGEN, BLOOD 7 mg/dL (7-18)
[2024-07-03 07:21] LABS: PHOSPHORUS 3.4 mg/dL (2.5-4.9)
[2024-07-03 08:30] VITALS: BP 140/78; TEMP 98.6; O2SAT 96
[2024-07-03 09:27] VITALS: BP 140/78
[2024-07-03 09:32] LABS: EOSINOPHILS % (MANUAL) 5 % (0-4); LYMPHOCYTES % (MANUAL) 22 % (16-48); MONOCYTES % (MANUAL) 16 % (0-11.0); NEUTROPHILS % (MANUAL) 57 (42-76); PLATELET ESTIMATE ADEQUATE
[2024-07-03 09:33] LABS: ANISOCYTOSIS 1+
[2024-07-03] MEDS: POTASSIUM CHLORIDE 20 MEQ TAB.PRT.SR PO SCH (10:48)
[2024-07-03] MEDS ORDERED: CEPH-570 PO (10:56)
== END 2024-07-03 13:50 | DRG 543 ==
LOC: ER 21:01 → MED 06-30 02:51
PROVIDERS: ADMIT Student in an Organized Health Care Education/Training Program; ATTEND Student in an Organized Health Care Education/Training Program
DX: M48.56XA Collapsed vertebra, not elsewhere classified, lumbar region, initial encounter for fracture (principal); E87.1 Hypo-osmolality and hyponatremia; N39.0 Urinary tract infection, site not specified; G93.40 Encephalopathy, unspecified; G40.909 Epilepsy, unspecified, not intractable, without status epilepticus; I10 Essential (primary) hypertension; F02.80 Dementia in other diseases classified elsewhere, unspecified severity, without behavioral disturbance, psychotic disturbance, mood disturbance, and anxiety; F20.9 Schizophrenia, unspecified; Z88.0 Allergy status to penicillin; Z85.840 Personal history of malignant neoplasm of eye; Z79.899 Other long term (current) drug therapy; B96.89 Other specified bacterial agents as the cause of diseases classified elsewhere; E78.5 Hyperlipidemia, unspecified; G20.A1 Parkinson's disease without dyskinesia, without mention of fluctuations; E05.90 Thyrotoxicosis, unspecified without thyrotoxic crisis or storm; G62.9 Polyneuropathy, unspecified; E86.9 Volume depletion, unspecified; I48.91 Unspecified atrial fibrillation; M19.90 Unspecified osteoarthritis, unspecified site; N40.0 Benign prostatic hyperplasia without lower urinary tract symptoms; K40.90 Unilateral inguinal hernia, without obstruction or gangrene, not specified as recurrent
CPT/HCPCS: 36415; 70450-TC; 71045-TC; 71250-TC; 72125-TC; 72170-TC; 80048-TC; 80053-TC; 81001; 82962-TC; 83605-TC; 83735-TC; 84100-TC; 84484-TC; 85025-TC; 87081-TC; 92526; 92611-TC; 97110-TC; 97116-TC; 97530-TC; A4223; G0378; J7030

== ENCOUNTER 2025-06-23 21:23 | Inpatient (IN) | payer MEDICARE, OTHER ==
[~2025-06-23] VITALS: Ht 175.3 cm; Wt 83.9 kg
[~2025-06-23 21:23] MED LIST changes: +CEPH-570 PO
[2025-06-23 22:05] LABS: PLATELET COUNT (AUTO) 206 K/uL (150-450); RED BLOOD CELL COUNT(AUTO) 4.84 MIL/uL (4.5-6.0); RED CELL DISTRIBUTION WIDTH 13.4 % (11.5-15.0); WHITE BLOOD COUNT (AUTO) 10.5 K/uL (4.3-11.0)
[2025-06-23 22:12] LABS: CALCIUM, SERUM 10.3 mg/dL (8.5-10.1); CREATININE 0.7 mg/dL (0.6-1.3); SODIUM SERUM 129.0 mmol/L (136-145); UREA NITROGEN, BLOOD 12.0 mg/dL (7-18)
[2025-06-23 23:17] LABS: AMPHETAMINE, URINE NEGATIVE (NEGATIVE); BARBITURATE, URINE NEGATIVE (NEGATIVE); BENZODIAZEPINE, URINE NEGATIVE (NEGATIVE); CANNABINOID, URINE NEGATIVE (NEGATIVE); COCCAINE, URINE NEGATIVE (NEGATIVE); OPIATE, URINE NEGATIVE (NEGATIVE)
[2025-06-23 23:26] LABS: APPEARANCE,URINE CLEAR (CLEAR); BLOOD, URINE NEGATIVE Ery/uL (NEGATIVE); LEUKOCYTE ESTERASE ,URINE NEGATIVE (NEGATIVE); NITRITE, URINE NEGATIVE (NEGATIVE); UGLUCOSE NEGATIVE (NEGATIVE)
[2025-06-24 01:30] VITALS: BP 156/104; TEMP 97.7; O2SAT 97
[2025-06-24] MEDS ORDERED: MAGNESIUM HYDROXIDE 30 ML UDC PO PRN (01:30)
[2025-06-24] MEDS ORDERED: ONDANSETRON HCL/PF 4 MG/2 ML VIAL IVP PRN (01:30)
[2025-06-24] MEDS ORDERED: Z GUARD REMEDY 4 OZ OINT TP PRN (01:30)
[2025-06-24] MEDS ORDERED: MAG HYDROX/AL HYDROX/SIMETH 30 ML UDC PO PRN (01:30)
[2025-06-24] MEDS ORDERED: ENOXAPARIN SODIUM 40 MG/0.4 ML DISP.SYRIN SQ SCH (01:30)
[2025-06-24] MEDS: IV NS 0.9% 1,000 ML IV SCH (03:24)
[2025-06-24] MEDS ORDERED: LOPERAMIDE HCL (2 MG CAP) 2 MG CAPSULE PO PRN (03:30)
[2025-06-24 06:43] LABS: CALCIUM, SERUM 8.8 mg/dL (8.5-10.1); CREATININE 0.9 mg/dL (0.6-1.3); PHOSPHORUS 2.7 mg/dL (2.5-4.9); SODIUM SERUM 137.0 mmol/L (136-145); UREA NITROGEN, BLOOD 9.0 mg/dL (7-18)
[2025-06-24] MEDS: PANTOPRAZOLE 40 MG TABLET.DR PO SCH (08:22)
[2025-06-24] MEDS: LACOSAMIDE 50 MG TABLET PO SCH ×2 (08:22→17:18)
[2025-06-24] MEDS: GABAPENTIN 100 MG CAPSULE PO SCH ×2 (08:22→12:05)
[2025-06-24] MEDS: BETHANECHOL CHLORIDE (25 MG) 25 MG TABLET PO SCH ×2 (08:22→12:05)
[2025-06-24] MEDS: METHIMAZOLE (5MG) 5 MG TABLET PO SCH (08:22)
[2025-06-24] MEDS: LEVETIRACETAM (250 MG) 250 MG TABLET PO SCH ×2 (08:22→21:26)
[2025-06-24] MEDS: AMLODIPINE BESYLATE 5 MG TABLET PO SCH (08:23)
[2025-06-24] MEDS: METOPROLOL TARTRATE 25 MG TABLET PO SCH ×2 (08:23→17:19)
[2025-06-24] MEDS: ENOXAPARIN SODIUM 40 MG/0.4 ML DISP.SYRIN SQ SCH (08:27)
[2025-06-24 08:38] VITALS: BP 136/98; TEMP 98.6; O2SAT 94
[2025-06-24] MEDS ORDERED: LOPE2TAB25 PO (09:03)
[2025-06-24] MEDS ORDERED: HYDR28OI2 TP (09:03)
[2025-06-24] MEDS ORDERED: IBUP-1955 PO (09:03)
[2025-06-24] MEDS ORDERED: ONDA4TAB5 PO (09:03)
[2025-06-24] MEDS ORDERED: AMLO10TA4 PO (09:03)
[2025-06-24] MEDS ORDERED: CLOT15CR27 TP (09:03)
[2025-06-24] MEDS ORDERED: DICYCLOMINE HCL 10 MG CAPSULE PO PRN (10:30)
[2025-06-24] MEDS: ACETAMINOPHEN 325 MG TABLET PO PRN (10:30)
[2025-06-24] MEDS: POLYVINYL ALCOHOL 15 ML BOTTLE EACHEYE PRN (14:09)
[2025-06-24 16:12] VITALS: BP 120/88; TEMP 97.9; O2SAT 94
[2025-06-24] MEDS: TAMSULOSIN 0.4 MG CAP.SR.24H PO SCH (17:19)
[2025-06-24] MEDS: CLOTRIMAZOLE 1% 15 GM TUBE TP SCH (17:20)
[2025-06-24 20:00] VITALS: BP 110/69; TEMP 97.9; O2SAT 95
[2025-06-24] MEDS: ATORVASTATIN 10 MG TABLET PO SCH (21:25)
[2025-06-24] MEDS: BENZTROPINE MESYLATE (1 MG) 1 MG TABLET PO SCH (21:26)
[2025-06-24] MEDS ORDERED: BENZTROPINE MESYLATE (1 MG) 1 MG TABLET PO SCH (22:00)
[2025-06-24] MEDS ORDERED: ATORVASTATIN 10 MG TABLET PO SCH (22:00)
[2025-06-24] MEDS ORDERED: LEVETIRACETAM (250 MG) 250 MG TABLET PO SCH (22:00)
[2025-06-24] MEDS ORDERED: TAMSULOSIN 0.4 MG CAP.SR.24H PO SCH (22:00)
[2025-06-25 06:47] LABS: PLATELET COUNT (AUTO) 205 K/uL (150-450); RED BLOOD CELL COUNT(AUTO) 4.56 MIL/uL (4.5-6.0); RED CELL DISTRIBUTION WIDTH 13.6 % (11.5-15.0); WHITE BLOOD COUNT (AUTO) 7.2 K/uL (4.3-11.0)
[2025-06-25 07:11] LABS: CALCIUM, SERUM 8.4 mg/dL (8.5-10.1); CREATININE 0.7 mg/dL (0.6-1.3); SODIUM SERUM 134.0 mmol/L (136-145); UREA NITROGEN, BLOOD 9.0 mg/dL (7-18)
[2025-06-25] MEDS ORDERED: OMEPRAZOLE 20 MG CAPSULE.DR PO SCH (07:30)
[2025-06-25] MEDS: LEVETIRACETAM (250 MG) 250 MG TABLET PO SCH (08:21)
[2025-06-25] MEDS: METHIMAZOLE (5MG) 5 MG TABLET PO SCH (08:22)
[2025-06-25] MEDS: AMLODIPINE BESYLATE 10 MG TABLET PO SCH (08:23)
[2025-06-25 16:00] VITALS: BP 142/83; TEMP 98.6; O2SAT 95
[2025-06-25 20:00] VITALS: BP 116/93; TEMP 98.8; O2SAT 96
[2025-06-25 20:21] LABS: CREATININE, URINE 54.3 MG/DL (30.0-125.0); URINE SODIUM, RANDOM 89.0 mmol/l (40-220); URINE TOTAL PROTEIN 10.4 mg/dL (0-11.9)
[2025-06-26 08:00] VITALS: BP 133/75; TEMP 98.1; O2SAT 97
[2025-06-26 16:00] VITALS: BP 119/80; TEMP 97.9; O2SAT 95
[2025-06-26 20:00] VITALS: BP 123/78; TEMP 97.9; O2SAT 98
[2025-06-26 22:23] LABS: CALCIUM, SERUM 8.8 mg/dL (8.5-10.1); CREATININE 0.8 mg/dL (0.6-1.3); SODIUM SERUM 137 mmol/L (136-145); UREA NITROGEN, BLOOD 9 mg/dL (7-18)
[2025-06-27] MEDS: IV NS 0.9% 1,000 ML IV PRN (00:28)
[2025-06-27 08:00] VITALS: BP 133/88; TEMP 98.1; O2SAT 97
[2025-06-27 09:27] VITALS: BP 133/88
== END 2025-06-27 14:09 | DRG 640 ==
LOC: ER 21:42 → MED 06-24 01:21
PROVIDERS: ADMIT Internal Medicine; ATTEND Internal Medicine
DX: E87.1 Hypo-osmolality and hyponatremia (principal); G93.41 Metabolic encephalopathy; E86.0 Dehydration; I10 Essential (primary) hypertension; Z79.899 Other long term (current) drug therapy; G40.909 Epilepsy, unspecified, not intractable, without status epilepticus; K21.9 Gastro-esophageal reflux disease without esophagitis; Z97.0 Presence of artificial eye; Z85.840 Personal history of malignant neoplasm of eye; Z88.0 Allergy status to penicillin; E78.5 Hyperlipidemia, unspecified; E05.90 Thyrotoxicosis, unspecified without thyrotoxic crisis or storm; F03.90 Unspecified dementia, unspecified severity, without behavioral disturbance, psychotic disturbance, mood disturbance, and anxiety; N40.0 Benign prostatic hyperplasia without lower urinary tract symptoms; F20.9 Schizophrenia, unspecified
CPT/HCPCS: 36415; 70450-TC; 71045-TC; 80048-TC; 82570-TC; 83735-TC; 83935-TC; 84100-TC; 84300-TC; 84439-TC; 84443-TC; 84481; 85025-TC; 87081-TC; A4223; G0378; J1650; J7030